=== PATIENT | male | born 1930 | race Caucasian/White ===

== ENCOUNTER 2020-08-13 11:25 | Emergency (ER) | payer OTHER, MEDICARE ==
[~2020-08-13] VITALS: Ht 182.9 cm; Wt 90.7 kg
[~2020-08-13 11:25] MED LIST: AMLODIPINE BESYL5 MG; GLUMETZA500; LISINOPRIL5 MG; MOBIC7.5 M1 PO; ROBAXIN500 MG PO; SIMVASTATIN5 MG
[2020-08-13] MEDS ORDERED: ARICEPT10 M1 PO (11:50)
[2020-08-13] MEDS ORDERED: OMEPRAZOLE40 MG PO (11:50)
[2020-08-13] MEDS ORDERED: GLIPIZIDE 10 MG10 MG PO (11:50)
[2020-08-13 14:54] LABS: URINE BILIRUBIN NEGATIVE (Negative); URINE BLOOD NEGATIVE (Negative); URINE COLOR YELLOW; URINE GLUCOSE-RANDOM 3+ (Negative); URINE KETONES NEGATIVE (Negative); URINE LEUKOCYTES TRACE (Negative); URINE NITRITE POSITIVE (Negative); URINE PROTEIN 2+ (Negative); URINE SPECIFIC GRAVITY 1.025 (1.005-1.030); URINE UROBILINOGEN 0.2 E.U./dl (0.2-1.0)
[2020-08-13 14:55] LABS: URINE CLARITY HAZY
[2020-08-13 15:00] LABS: AMORPHOUS URATES Few /LPF (None Seen); BACTERIA None Seen /HPF (None Seen); CASTS None Seen /LPF (None Seen); SQUAMOUS 0-3 Few /LPF (0-3); URINE RBC None Seen /HPF (0-2); URINE WBC 0-5 Rare /HPF (0-5)
[2020-08-13 15:45] VITALS: BP 125/65
== END 2020-08-13 15:47 | disposition home or self-care (01) ==
LOC: M.ERS 11:25
PROVIDERS: Emergency Medicine
DX: M54.5 Low back pain (principal); F03.90 Unspecified dementia, unspecified severity, without behavioral disturbance, psychotic disturbance, mood disturbance, and anxiety; E11.9 Type 2 diabetes mellitus without complications; I10 Essential (primary) hypertension; E78.00 Pure hypercholesterolemia, unspecified; Z79.899 Other long term (current) drug therapy; W07.XXXA Fall from chair, initial encounter; Y93.89 Activity, other specified; Y92.89 Other specified places as the place of occurrence of the external cause; Y99.8 Other external cause status